=== PATIENT | male | born 1945 | race Two or more races ===

== ENCOUNTER 2016-12-23 17:49 | Emergency (ER) | payer MEDICARE, MEDICAID ==
[~2016-12-23] VITALS: Ht 177.8 cm; Wt 80.7 kg
--- NOTE | 2016-12-23 18:15 | NUR ---
PT BIB [facility] C/O N/V TODAY AND FOR EVAL OF STEPHEN-UMBILICAL HERNIA. PT DENIES PAIN. NAD NOTED. NO VOMITING NOTED SINCE ARRIVAL. RESP EVEN UNLABORED. ABD SOFT, NON-TENDER. NOTED WITH SCAR OVER HERNIA. PER DAUGHTER, S/P HERNIA SX X2. IN ER BED 09.
[2016-12-23] MEDS ORDERED: ONDANSETRON HCL/PF 4 MG/2 ML VIAL IVP ONE (18:30)
--- NOTE | 2016-12-23 18:44 | NUR ---
XRAY AT BEDSIDE
[2016-12-23 18:45] LABS: BASOPHILS % (AUTO) 0.5 % (0.0-2.0); EOSINOPHILS # (AUTO) 0.7 /CMM (0.0-0.7); EOSINOPHILS % (AUTO) 12.1 % (0.0-6.0); HEMATOCRIT 34 % (39-51); HEMOGLOBIN 11.3 g/dL (13.5-17.5); LYMPHOCYTES # (AUTO) 0.7 /CMM (0.8-4.8); MEAN CORPUSCULAR HEMOGLOBIN 32 PG (26.0-33.0); MEAN CORPUSCULAR HGB CONC 33 g/dl (31.0-36.0); MEAN CORPUSCULAR VOLUME 98 fL (80-96); MONOCYTES # (AUTO) 0.4 /CMM (0.1-1.30); MONOCYTES % (AUTO) 7.7 % (2.0-12.0); NEUTROPHILS # (AUTO) 3.7 /CMM (1.8-8.9); NEUTROPHILS % (AUTO) 66.7 % (43.0-81.0); PLATELET COUNT (AUTO) 263 /CMM (150-450); RDW COEFFICIENT OF VARIATION 13.6 (11.5-15.0); RED BLOOD CELL COUNT(AUTO) 3.49 MIL/uL (4.5-6.0); WHITE BLOOD COUNT (AUTO) 5.5 K/uL (4.3-11.0)
[2016-12-23] MEDS ORDERED: ONDANSETRON HCL/PF 4 MG/2 ML VIAL ONE (18:45)
[2016-12-23 18:59] LABS: INR 1.04 (0.87-1.13); PROTHROMBIN TIME 10.8 SECS (9.5-12.7)
[2016-12-23 19:01] LABS: ALBUMIN 3.6 g/dL (3.4-5.0); BILIRUBIN,DIRECT 0.1 mg/dL (0.0-0.2); BILIRUBIN,TOTAL 0.5 mg/dL (0.2-1.0); CALCIUM, SERUM 9.5 mg/dL (8.5-10.1); CREATININE 5.1 mg/dL (0.6-1.3); POTASSIUM 4.7 mmol/L (3.5-5.1); TOTAL PROTEIN, SERUM 7.1 g/dL (6.4-8.2)
--- NOTE | 2016-12-23 21:45 | NUR ---
RPatient is resting comfortably in bed with eyes closed. Easily aroused. VSS
--- NOTE | 2016-12-23 22:12 | NUR ---
CALLED [facility] FOR F/U ON CT REPORT
--- NOTE | 2016-12-23 22:49 | NUR ---
CALLED RADIOLOGY TO F/U ON STATUS OF CT REPORT
--- NOTE | 2016-12-23 23:08 | NUR ---
NOTIFIED THAT RESULTS OF CT ARE IN. PT RESTING QUIETLY, NAD NOTED.
--- NOTE | 2016-12-23 23:40 | NUR ---
CALLED [facility] FOR TRANSPORT TO [facility] Addendum: 12/23/16 at 2342 by [facility] ETA 30 MINS
--- NOTE | 2016-12-24 00:12 | NUR ---
DISCHARGE PAPERWORK AND INSTRUCTIONS PROVIDED TO FAMILY WHILE WAITING FOR TRANSPORT. FAMILY VERBALIZES UNDERSTANDING.
[2016-12-24 00:24] VITALS: BP 129/68
--- NOTE | 2016-12-24 00:33 | NUR ---
PT DISCHARGED TO [facility] IN STABLE CONDITION VIA [employer] [facility]LS.
== END 2016-12-24 00:25 ==
LOC: ER 17:53
DX: K46.9 Unspecified abdominal hernia without obstruction or gangrene (principal); J44.9 Chronic obstructive pulmonary disease, unspecified; I12.0 Hypertensive chronic kidney disease with stage 5 chronic kidney disease or end stage renal disease; N18.6 End stage renal disease; Z85.51 Personal history of malignant neoplasm of bladder; Z95.1 Presence of aortocoronary bypass graft; Z99.2 Dependence on renal dialysis; E78.00 Pure hypercholesterolemia, unspecified; E11.9 Type 2 diabetes mellitus without complications
CPT/HCPCS: 36415; 71010; 74176; 80048; 80076; 83690; 85025; 85730; 96374; 99285; A4606; J2405; Z7610